=== PATIENT | female | born 2000 | race Hispanic/Latino ===

== ENCOUNTER 2020-04-24 02:13 | Observation (INO) | payer MEDICAID, OTHER ==
[~2020-04-24] VITALS: Ht 157.5 cm; Wt 46.7 kg
[2020-04-24] MEDS ORDERED: POTASSIUM CHLORIDE 20 MEQ ERTAB PO ONE (03:12)
[2020-04-24] MEDS ORDERED: CEFTRIAXONE SODIUM 1 GM ONE (05:55)
[2020-04-24] MEDS ORDERED: LACTATED RINGERS 1000ML IV PRN (07:45)
[2020-04-24] MEDS ORDERED: CEFTRIAXONE SODIUM 1 GM IVP SCH (10:15)
[2020-04-24] MEDS ORDERED: POTASSIUM CHLORIDE 20 MEQ ERTAB PO PRN (10:15)
[2020-04-24] MEDS ORDERED: POTASSIUM CHLORIDE 20MEQ/100ML 100 ML IV PRN ×2 (10:15)
[2020-04-24] MEDS ORDERED: POTASSIUM CHLORIDE 10% ELIXIR 20 MEQ/15 ML UDCUP PO PRN (10:15)
[2020-04-24] MEDS ORDERED: LORAZEPAM 2 MG/ML 1 ML VIAL IVP PRN (10:30)
[2020-04-24] MEDS ORDERED: CHLORDIAZEPOXIDE HCL 25 MG CAP PO PRN (10:30)
[2020-04-24] MEDS ORDERED: PHARMACY COMMUNICATION MISC PRN (10:30)
[2020-04-24] MEDS ORDERED: LACTATED RINGERS 1000ML 1,000 ML IV SCH (11:15)
[2020-04-24 19:50] VITALS: BP 117/84
[2020-04-24] MEDS: LACTATED RINGERS 1000ML 1,000 ML IV SCH (21:07)
[2020-04-25] MEDS: LACTATED RINGERS 1000ML 1,000 ML IV SCH (04:36)
== END 2020-04-25 09:02 | disposition home or self-care (01) ==
LOC: EDH 02:13 → LDH 02:14 → EDH 06:21
PROVIDERS: ADMIT Obstetrics & Gynecology; ATTEND Obstetrics & Gynecology
DX: O99.323 Drug use complicating pregnancy, third trimester (principal); F14.129 Cocaine abuse with intoxication, unspecified; F13.129 Sedative, hypnotic or anxiolytic abuse with intoxication, unspecified; R10.9 Unspecified abdominal pain; E87.6 Hypokalemia; R55 Syncope and collapse; Z3A.31 31 weeks gestation of pregnancy; Z91.14 Patient's other noncompliance with medication regimen; Z91.19 Patient's noncompliance with other medical treatment and regimen
CPT/HCPCS: 36415 ×2; 70450; 76705; 76805; 76819; 80053 ×2; 80305; 81001; 83690; 84132; 85025 ×2; 87088; 87486; 87797; 93005; 96361 ×2; 96374; 99285; G0378 ×23; G0480; J0696 ×2; J7120 ×3

== ENCOUNTER 2020-06-07 17:28 | Inpatient (IN) | payer MEDICAID ==
[~2020-06-07] VITALS: Ht 157.5 cm; Wt 47.6 kg
[2020-06-07 18:08] LABS: HEMATOCRIT 29.4 % (36-48); MEAN CORPUSCULAR HEMOGLOBIN 24.1 pg (27.0-33.0); MEAN CORPUSCULAR HGB CONC 31.3 g/dL (32.0-36.0); MEAN CORPUSCULAR VOLUME 77.2 fL (80-100); PLATELET COUNT (AUTO) 258 K/uL (130-400); RED BLOOD CELL COUNT(AUTO) 3.81 MIL/uL (4.00-5.50); WHITE BLOOD COUNT (AUTO) 14.3 K/uL (4.8-10.8)
[2020-06-07 18:14] LABS: APPEARANCE,URINE CLEAR (CLEAR); BILIRUBIN,URINE SMALL (NEGATIVE); COLOR,URINE YELLOW (YELLOW); GLUCOSE, URINE (UA) NEGATIVE (NEGATIVE); KETONES,URINE 15 mg/dL (NEGATIVE); LEUKOCYTE ESTERASE ,URINE SMALL (NEGATIVE); NITRATE,URINE NEGATIVE (NEGATIVE); OCCULT BLOOD,URINE MODERATE (NEGATIVE); PROTEIN,URINE 30 mg/dL (NEGATIVE); UROBILINOGEN,URINE 0.2 mg/dL (0.2-1.0)
[2020-06-07] MEDS ORDERED: NALOXONE HCL 0.4 MG/1 ML ML IV PRN (18:15)
[2020-06-07] MEDS ORDERED: PROMETHAZINE HCL 25 MG/ML 1ML AMPULE IM PRN (18:15)
[2020-06-07] MEDS ORDERED: MEPERIDINE-PF 50 MG/ML SYG IVP PRN (18:15)
[2020-06-07] MEDS ORDERED: LACTATED RINGERS 500 ML 500 ML IV PRN (18:15)
[2020-06-07] MEDS ORDERED: EPHEDRINE SULFATE 50 MG/ML AMPULE IVP PRN (18:15)
[2020-06-07 18:19] LABS: AMPHET/METH SCREEN,URINE POSITIVE (NEGATIVE); BARBITURATE SCREEN, URINE NEGATIVE (NEGATIVE); BENZODIAZEPINES SCREEN,URINE POSITIVE (NEGATIVE); CANNABINOID SCREEN,URINE POSITIVE (NEGATIVE); COCAINE SCREEN,URINE POSITIVE (NEGATIVE); OPIATE SCREEN,URINE NEGATIVE (NEGATIVE); PHENCYCLIDINE SCREEN,URINE NEGATIVE (NEGATIVE)
[2020-06-07 18:41] LABS: BACTERIA,URINE Few /HPF (None Seen); MUCUS,URINE Few LPF (None Seen); SQUAMOUS EPITHELIAL CELL,UR Moderate /HPF (0-2); TRICHOMONAS,URINE Few /LPF (None Seen)
[2020-06-07] MEDS ORDERED: OXYTOCIN-LR 20 UNITS/1000 ML 1,000 ML IV SCH (19:45)
[2020-06-07 20:00] VITALS: BP 116/81
[2020-06-07] MEDS: LACTATED RINGERS 1000ML 1,000 ML IV PRN ×2 (20:08→23:04)
[2020-06-08] VITALS (11 sets, daily range): BP systolic 113–145; BP diastolic 65–116
[2020-06-08] MEDS: LACTATED RINGERS 1000ML 1,000 ML IV PRN (05:28)
[2020-06-08] MEDS ORDERED: OXYTOCIN 10 USP UNITS/ML 20 UNIT in LACTATED RINGERS 1000ML 1,000 ML IV SCH (06:00)
[2020-06-08] MEDS ORDERED: LIDOCAINE HCL 1% 20 ML VIAL ONE (10:33)
[2020-06-08] MEDS ORDERED: OXYTOCIN-LR 20 UNITS/1000 ML 1,000 ML IV SCH (11:15)
[2020-06-08] MEDS ORDERED: DIPH,PERTUSS(ACELL),TET VAC/PF 0.5 ML VIAL IM PRN (11:15)
[2020-06-08] MEDS ORDERED: BENZOCAINE/LANOLIN/ALOE VERA 60 ML AEROSOL TP PRN (11:15)
[2020-06-08] MEDS ORDERED: ACETAMINOPHEN-CODEINE 300/30MG TAB PO PRN (11:15)
[2020-06-08] MEDS ORDERED: MEASLES/MUMPS/RUBELLA VACCINE, LIVE 0.5 ML/VIAL SQ PRN (11:15)
[2020-06-08] MEDS ORDERED: WITCH HAZEL 1 PAD TP PRN (11:15)
[2020-06-08] MEDS ORDERED: ACETAMINOPHEN 325 MG TAB PO PRN (11:15)
[2020-06-08] MEDS ORDERED: LANOLIN 30GM OINTMENT TP PRN (11:15)
--- NOTE | 2020-06-08 12:30 | NUR ---
SS Evaluation SW met with pt. who is awake, alert and oriented; BG's paternal Grandmother Ms. Romero at bedside. Pt. reported that this was her first /delivery and will name BG Kasie Carrion. Pt. reported PNC from 18weeks. Pt. currently resides with boyfriend's mother; boyfriend is incarcerated at [place] for robbery. Family resides in single level home and all utilities are reportedly connected. Pt. receives WIC, [place], Medicaid; Carseat in place. Transportation provided by Ms. Romero; pt's mother resides in [place]. There are no tobacco smoker in the home. Pt. denied any history of domestic violence. Pt. denied any history of depression, anxiety or thoughts of harm to self or others. SW provided education on PPD and encouraged pt. to seek assistance if symptoms surfaced; pt. voiced an understanding. Pt. admitted to history of substance use; off/on for four years. Pt. reported that she was in Rehabilitation for substance use four years ago in [place]; denied any other rehab or counseling since then. MELISSA spoke with pt. about positive UDS; pt. verbalized an awareness that she is positive and so is BG. SW informed pt. of need to report findings to CPS and possible placement of child with family member; pt. verbalized an understanding. MELISSA also spoke with pt. about choosing family for placement of BG if mandated by CPS; pt. stated that she would prefer BG be cared for by boyfriend's mother Ms. Romero whom she resides with and that she would move out of home and in with her grandmother/Gill Patel. MELISSA recommended that pt. obtain counseling for substance use and provided pt. with information on [facility] Substance Use [facility] along with [facility]. SW also informed pt. that once CPS bounty trapper is assigned, worker would visit her for interview would refer her to a program as part of her Plan of Care; pt. voiced an understanding. Pt. voiced no questions and was informed that this worker would continue to follow throughout BG's admission. Addendum: 06/08/20 at 1423 by JEOVANY SPRING Amended: Links added.
--- NOTE | 2020-06-08 12:50 | NUR ---
Recovery QBL - 82ml Addendum: 06/08/20 at 1657 by ROBERTO LANDAVERDE RN Amended: Links added.
--- NOTE | 2020-06-08 13:00 | NUR ---
CPS Report made to CPS Hotline by this worker due to positive UDS on pt. and BG. Report taken by Maritza/ID#[id number] Reference #[id number] SW will continue to follow.
[2020-06-08] MEDS: IBUPROFEN 600 MG TABLET PO PRN (13:23)
--- NOTE | 2020-06-08 16:30 | NUR ---
CPS Oil Pumper Abdirashid Porras/[phone] on site and interviewing pt. and stated that he will need to secure placement for Baby and possibly have safety plan by this evening. This worker will f/u with CPS tomorrow. AGUS Epperson made aware.
[2020-06-08] MEDS: DOCUSATE SODIUM 100 MG CAP PO SCH (21:32)
[2020-06-09 04:37] VITALS: BP 114/70
[2020-06-09 06:49] LABS: MEAN CORPUSCULAR HGB CONC 30.8 g/dL (32.0-36.0); MEAN CORPUSCULAR VOLUME 78.1 fL (80-100); RED BLOOD CELL COUNT(AUTO) 3.33 MIL/uL (4.00-5.50); RED CELL DISTRIBUTION WIDTH 16.3 % (11.0-15.5); WHITE BLOOD COUNT (AUTO) 12.7 K/uL (4.8-10.8)
[2020-06-09 07:31] VITALS: BP 118/69
--- NOTE | 2020-06-09 08:37 | NUR ---
F/U call to CPS/Abdirashid Devries who reported that pt. may be discharged when medically cleared. He has not found placement yet for BG. SW to f/u on Friday for Safety Plan in anticipation of BG's discharge on Friday. AGUS Wilcox made aware. SW attempted visit with pt., however, she remains sleeping. SW will revisit.
[2020-06-09] MEDS: DOCUSATE SODIUM 100 MG CAP PO SCH (09:11)
[2020-06-09] MEDS: IBUPROFEN 600 MG TABLET PO PRN (09:11)
[2020-06-09 10:13] LABS: HEPATITIS Bs ANTIGEN SCREEN P Negative (Negative)
--- NOTE | 2020-06-09 10:15 | NUR ---
pt is discharged. verbal and written discharge instructions given, refer to exit care. informed of the follow up appointment, prescription given. informed to call the doctor for future concerns. pt voiced understanding to all things discussed. Addendum: 06/09/20 at 1023 by ROBERTO LANDAVERDE RN Amended: Links added.
--- NOTE | 2020-06-09 11:15 | NUR ---
pt is dismissed, brought to private car via wheelchair by Vesta Merrill pcp Addendum: 06/09/20 at 1122 by ROBERTO LANDAVERDE RN Amended: Links added.
--- NOTE | 2020-06-09 15:45 | NUR ---
Call from CPS/Abdirashid Devries requesting copy of UDS for birthmother; copy sent via email. Per CPS, still unable to secure placement and may have to file for removal. SW will continue to follow up on Friday for Plan of Care/Safety Plan.
== END 2020-06-09 11:15 | disposition home or self-care (01) | DRG 560 ==
LOC: EDH 17:28 → LDH 17:37 → OBSVTOIN 17:37 → WSH 06-08 11:35
PROVIDERS: ADMIT Obstetrics & Gynecology; ATTEND Obstetrics & Gynecology
PROC: 0UQGXZZ Repair Vagina, External Approach (ICD-10-PCS; principal; 2020-06-08)
PROC: 10E0XZZ Delivery of Products of Conception, External Approach (ICD-10-PCS; 2020-06-08)
PROC: 3E0234Z Introduction of Serum, Toxoid and Vaccine into Muscle, Percutaneous Approach (ICD-10-PCS; 2020-06-08)
PROC: 3E0134Z Introduction of Serum, Toxoid and Vaccine into Subcutaneous Tissue, Percutaneous Approach (ICD-10-PCS; 2020-06-08)
PROC: 3E0R3BZ Introduction of Anesthetic Agent into Spinal Canal, Percutaneous Approach (ICD-10-PCS; 2020-06-08)
PROC: 00HU33Z Insertion of Infusion Device into Spinal Canal, Percutaneous Approach (ICD-10-PCS; 2020-06-08)
DX: O69.81X0 Labor and delivery complicated by cord around neck, without compression, not applicable or unspecified (principal); Z23 Encounter for immunization; Z37.0 Single live birth; Z3A.38 38 weeks gestation of pregnancy; O71.4 Obstetric high vaginal laceration alone
CPT/HCPCS: 36415; 80305; 81001; 85027; 86592; 86850; 86900; 86901; 87340; 90715; A4314; G0378; J2590; J7120